=== PATIENT | female | born 1990 | race Caucasian/White ===

== ENCOUNTER 2020-05-08 08:51 | Outpatient (NON) | payer OTHER, SELFPAY ==
[2020-05-08 14:56] LABS: Influenza Control Positive
[2020-05-08 23:28] LABS: SARS-CoV-2 RNA PCR Negative
== END 2020-05-08 08:52 ==
LOC: ANHCOVIDDT 08:52
PROVIDERS: PCP Family Medicine; Visit Provider Nurse Practitioner Family
DX: J06.9 Acute upper respiratory infection, unspecified (principal); Z20.822 Contact with and (suspected) exposure to COVID-19
CPT/HCPCS: 87502; 87804; C9803; U0003